=== PATIENT | female | born 1985 | race African-American/Black ===

== ENCOUNTER 2016-10-04 09:19 | Emergency (ER) | payer SELFPAY ==
[~2016-10-04 09:19] MED LIST: [UNRECOGNIZED DRUG - CODE]
[2016-10-04 09:21] VITALS: BP 107/59; PULSE 87; RESP 16; TEMP 98.1; O2SAT 98
== END 2016-10-04 09:21 | disposition left against medical advice (07) ==
LOC: NED 09:19
DX: M54.9 Dorsalgia, unspecified (principal); Z53.21 Procedure and treatment not carried out due to patient leaving prior to being seen by health care provider
CPT/HCPCS: 99281

== ENCOUNTER 2017-02-28 23:42 | Emergency (ER) | payer SELFPAY ==
[~2017-02-28] VITALS: Ht 157.5 cm; Wt 60.0 kg
[2017-02-28 23:46] VITALS: BP 122/70; PULSE 88; RESP 20; TEMP 98; O2SAT 98
[2017-03-01 01:08] LABS: BLOOD, URINE SMALL (NEG); COMMENT (UR) CULT NOT INDICATED; CULTURE IF INDICATED CULT NOT INDICATED; GLUCOSE,URINE NEG (NEG); KETONE, URINE NEG (NEG); MUCUS URINE FEW /lpf (OCC); NITRITE,URINE NEG (NEG); SQUAMOUS EPITHELIAL CELL URINE 1 /hpf (0-5); URINE COLOR YELLOW (YELLW/STRAW)
[2017-03-01] MEDS ORDERED: LIDOCAINE HCL 1% 50 ML VIAL IM ONE (01:15)
[2017-03-01] MEDS ORDERED: cefTRIAXone 250 MG VIAL IM ONE (01:15)
[2017-03-01] MEDS ORDERED: AZITHROMYCIN PWD FOR SUSP 1 GM PACKET PO ONE (01:15)
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
[2017-03-01 17:00] LABS: CHLAMYDIA PCR NOT DETECTED (NOT DETECT); NEISSERIA PCR DETECTED (NOT DETECT)
== END 2017-03-01 02:15 | disposition home or self-care (01) ==
LOC: NEPE 23:42
DX: N76.0 Acute vaginitis (principal)
CPT/HCPCS: 81001; 84703; 87210; 87491; 87591; 96372; 99284; J0696